=== PATIENT | female | born 1940 | race Caucasian/White ===

== ENCOUNTER → 2016-11-28 | Outpatient (CLI) | payer MEDICARE, BC ==
[~2016-11-28] MED LIST: ATEN50TA41 PO; DICL75TA2 PO; FLUTICASONE PO; LEVO50TA5 PO; MISO200T4 PO; OMNIPAQUE 350 MG/ML, 100ML BOTTLE ONE; OXYC-302 PO; PANT40TA3 PO; TRIA1TAB5 PO; VERA120T5 PO
== END | disposition home or self-care (01) ==
LOC: CFH 12:08
PROVIDERS: ATTEND Colon & Rectal Surgery
DX: Z13.820 Encounter for screening for osteoporosis (principal); Z01.818 Encounter for other preprocedural examination; M85.88 Other specified disorders of bone density and structure, other site; C18.9 Malignant neoplasm of colon, unspecified; R91.1 Solitary pulmonary nodule; J47.9 Bronchiectasis, uncomplicated; J43.8 Other emphysema; M47.896 Other spondylosis, lumbar region; K63.89 Other specified diseases of intestine; N95.8 Other specified menopausal and perimenopausal disorders
CPT/HCPCS: 71260; 74177; 77080; 82565; Q9967

== ENCOUNTER 2017-02-06 14:34 | Inpatient (IN) | payer MEDICARE, BC ==
[~2017-02-06] VITALS: Ht 160 cm; Wt 102.6 kg
[~2017-02-06 14:34] MED LIST changes: -OMNIPAQUE 350 MG/ML, 100ML BOTTLE ONE
[2017-02-06 15:23] LABS: BLOOD UREA NITROGEN 17 mg/dL (7-18)
[2017-02-06] MEDS ORDERED: ONDANSETRON 2MG/ML, 2ML IVPush PRN (16:30)
[2017-02-06] MEDS ORDERED: ACETAMINOPHEN 325 MG TABLET PO PRN (16:30)
[2017-02-06] MEDS ORDERED: TEMAZEPAM 15 MG CAPSULE PO PRN (16:30)
[2017-02-06] MEDS: PANTOPROZOLE 40MG TABLET PO SCH (17:00)
[2017-02-06] MEDS ORDERED: IRON SUCROSE COMPLEX 100MG/5ML IV SCH (19:00)
[2017-02-06] MEDS: GOLYTELY 4,000ML ORAL.SOL PO SCH (20:10)
[2017-02-06] MEDS: ATENOLOL 50 MG TABLET PO SCH (21:43)
[2017-02-06 22:57] VITALS: BP 188/83
[2017-02-07] MEDS ORDERED: POTASSIUM CHLORIDE 20 MEQ in LACTATED RINGERS 1,000 ML IV SCH
[2017-02-07 01:50] VITALS: BP 145/75
[2017-02-07] MEDS: GOLYTELY 4,000ML ORAL.SOL PO SCH (03:34)
[2017-02-07 05:39] LABS: BLOOD UREA NITROGEN 9 mg/dL (7-18)
[2017-02-07 05:42] LABS: ASPARTATE AMINO TRANSFERASE 17 U/L (15-37)
[2017-02-07 07:06] VITALS: BP 178/76
[2017-02-07] MEDS: PANTOPROZOLE 40MG TABLET PO SCH (08:00)
[2017-02-07] MEDS: ATENOLOL 50 MG TABLET PO SCH (08:28)
[2017-02-07] MEDS ORDERED: VERAPAMIL 120MG TABLET PO SCH (09:00)
[2017-02-07] MEDS ORDERED: MISOPROSTOL 200 MCG TABLET PO SCH (09:00)
[2017-02-07] MEDS ORDERED: LEVOTHYROXINE 50 MCG TABLET PO SCH (09:00)
[2017-02-07 10:30] VITALS: BP 104/61
[2017-02-07] MEDS ORDERED: FENTANYL PF 100 MCG/2ML ONE (11:20)
[2017-02-07] MEDS ORDERED: MIDAZOLAM 1 MG/ML, 5ML ONE (11:21)
[2017-02-07 12:38] VITALS: BP 130/74
[2017-02-07] MEDS ORDERED: FERR325T20 PO (13:22)
[2017-02-07] MEDS ORDERED: FERROUS SULFATE 325 MG TABLET PO SCH (17:00)
[2017-02-08] MEDS ORDERED: TRIAMTERENE/HCTZ 75/50MG TABLET PO SCH (09:00)
== END 2017-02-07 15:02 | disposition home or self-care (01) | DRG 394 ==
LOC: OR 15:27 → EDIP 15:28 → OR 15:35 → 4WST 18:31
PROVIDERS: ADMIT Internal Medicine
PROC: 0DJD8ZZ Inspection of Lower Intestinal Tract, Via Natural or Artificial Opening Endoscopic (ICD-10-PCS; principal; 2017-02-07 14:15)
DX: K64.8 Other hemorrhoids (principal); E44.1 Mild protein-calorie malnutrition; D62 Acute posthemorrhagic anemia; Z68.41 Body mass index [BMI] 40.0-44.9, adult; E03.9 Hypothyroidism, unspecified; M81.0 Age-related osteoporosis without current pathological fracture; Z66 Do not resuscitate; D50.9 Iron deficiency anemia, unspecified; I11.9 Hypertensive heart disease without heart failure; E55.9 Vitamin D deficiency, unspecified; M19.90 Unspecified osteoarthritis, unspecified site; E78.5 Hyperlipidemia, unspecified; J44.9 Chronic obstructive pulmonary disease, unspecified; Z87.891 Personal history of nicotine dependence; Z85.048 Personal history of other malignant neoplasm of rectum, rectosigmoid junction, and anus; Z99.81 Dependence on supplemental oxygen; Z90.49 Acquired absence of other specified parts of digestive tract; Z88.5 Allergy status to narcotic agent; Z88.8 Allergy status to other drugs, medicaments and biological substances; Z87.11 Personal history of peptic ulcer disease; M47.816 Spondylosis without myelopathy or radiculopathy, lumbar region; Z86.010 Personal history of colon polyps
CPT/HCPCS: 36415; 80048; 80053; 82040; 82728; 83540; 83550; 85018; 85025; 85610; 85651; 85730; 86850; 86900; 93005; 96374; 99151; J1756; J2250; J2405; J3010; J3480; J7120

== ENCOUNTER → 2018-08-24 | Outpatient (CLI) | payer MEDICARE, BC ==
[~2018-08-24] MED LIST changes: +FERR325T18 PO
[2018-08-24 12:12] LABS: BASOPHILS # (AUTO) 0.05 x10^3/uL (0-0.1); BASOPHILS % (AUTO) 1 % (0-1); EOSINOPHILS # (AUTO) 0.26 x10^3/uL (0-0.4); EOSINOPHILS % (AUTO) 3 % (1-7); LYMPHOCYTES # (AUTO) 1.79 x10^3/uL (1-3.4); LYMPHOCYTES % (AUTO) 19 % (22-44); MD NO; MEAN CORPUSCULAR HEMOGLOBIN 30.7 pg (27.0-34.8); MEAN CORPUSCULAR HGB CONC 32.5 g/dL (32.4-35.8); MEAN CORPUSCULAR VOLUME 94.5 fL (80-100); MEAN PLATELET VOLUME 7.2 fL (7.4-10.4); MONOCYTES # (AUTO) 0.61 x10^3/uL (0.2-0.8); MONOCYTES % (AUTO) 7 % (2-9); NEUTROPHILS # (AUTO) 6.67 x10^3/uL (1.8-6.8); NEUTROPHILS % (AUTO) 71 % (42-75); PLATELET COUNT 282 x10^3/uL (130-400); RED BLOOD COUNT 4.58 x10^6/uL (3.82-5.3)
[2018-08-24 12:24] LABS: CREATININE 1.06 mg/dL (0.55-1.02)
[2018-08-24 12:36] LABS: FREE T4 (FREE THYROXINE) 1.21 ng/dL (0.76-1.46); THYROID STIMULATING HORMONE 3.54 mIU/L (0.358-3.740)
== END | disposition home or self-care (01) ==
LOC: LAB 11:56
PROVIDERS: ATTEND Internal Medicine
DX: D50.9 Iron deficiency anemia, unspecified (principal); E03.8 Other specified hypothyroidism
CPT/HCPCS: 36415; 82565; 82728; 84439; 84443; 85025

== ENCOUNTER → 2018-08-27 | Outpatient (CLI) | payer MEDICARE, BC ==
[~2018-08-27] MED LIST changes: +GADOBUTROL 10 MMOL/10 ML PFS ONE
== END | disposition home or self-care (01) ==
LOC: RAD 07:20
PROVIDERS: ATTEND Internal Medicine
DX: G31.9 Degenerative disease of nervous system, unspecified (principal); G57.33 Lesion of lateral popliteal nerve, bilateral lower limbs; J44.9 Chronic obstructive pulmonary disease, unspecified
CPT/HCPCS: 70553; A9585

== ENCOUNTER 2019-02-18 12:50 | Outpatient (CLI) | payer MEDICARE, BC ==
[~2019-02-18 12:50] MED LIST changes: -DICL75TA2 PO; +DICL75TA3 PO; -GADOBUTROL 10 MMOL/10 ML PFS ONE
== END 2019-02-18 23:59 | disposition home or self-care (01) ==
LOC: CARD 12:50
PROVIDERS: ATTEND Nurse Practitioner
DX: J44.9 Chronic obstructive pulmonary disease, unspecified (principal); I10 Essential (primary) hypertension; E03.9 Hypothyroidism, unspecified; Z88.5 Allergy status to narcotic agent; Z88.8 Allergy status to other drugs, medicaments and biological substances
CPT/HCPCS: 94060; 94618; 94726; 94729

== ENCOUNTER 2019-04-20 11:25 | Outpatient (CLI) | payer MEDICARE, BC | END 2019-04-20 23:59 | disposition home or self-care (01) | LOC: CFH 11:25 | PROVIDERS: ATTEND Internal Medicine Cardiovascular Disease | DX: Z01.810 Encounter for preprocedural cardiovascular examination (principal); I35.8 Other nonrheumatic aortic valve disorders; I10 Essential (primary) hypertension; J43.9 Emphysema, unspecified; Z87.891 Personal history of nicotine dependence | CPT/HCPCS: 78452; 93017; 93306; A9502; J2785 ==

== ENCOUNTER 2019-10-02 20:40 | Inpatient (IN) | payer MEDICARE, BC ==
[~2019-10-02] VITALS: Ht 160 cm; Wt 103.9 kg
[2019-10-02] MEDS ORDERED: SODIUM CHLORIDE FLUSH 10ML SYR IVF ONE (21:00)
--- NOTE | 2019-10-02 21:08 | NUR ---
PT UP TO BSC 1ASSISST. PT TO CT AT THIS TIME
[2019-10-02] MEDS ORDERED: HEPARIN 25,000 UNITS/500ML PMX 500 ML IV PRN ×2 (21:30→21:31)
[2019-10-02] MEDS ORDERED: HEPARIN 5,000 UNITS/ML, 1ML IV PRN ×2 (21:30→21:31)
[2019-10-02] MEDS ORDERED: HEPARIN 5,000 UNITS/ML, 1ML IV ONE (21:30)
[2019-10-02] MEDS ORDERED: HEPARIN 5,000 UNITS/ML, 1ML ONE (21:45)
[2019-10-02] MEDS ORDERED: HEPARIN 25,000 UNITS/500ML PMX 500 ML ONE (21:45)
--- NOTE | 2019-10-02 21:45 | NUR ---
VERIFIED DOSE RATE FOR HEPARIN WITH PHARMACY, PER PHARMACY USE DOSE FOR 71KG-85KG
--- NOTE | 2019-10-02 21:55 | NUR ---
HEPARIN BOLUS AND DRIP STARTED, VERIFIED WITH JEREMIE KATE.
[2019-10-02] MEDS ORDERED: OMNIPAQUE 350 MG/ML, 100ML BOTTLE ONE (22:30)
[2019-10-02] MEDS ORDERED: NITROGLYCERIN 0.4 MG BOTTLE (25 TABS) SL PRN (23:00)
[2019-10-02] MEDS ORDERED: BISACODYL 10 MG SUPP PR PRN (23:00)
[2019-10-02] MEDS ORDERED: ONDANSETRON ODT 4 MG PO PRN (23:00)
[2019-10-02] MEDS ORDERED: POLYETHYLENE GLYCOL 17 GM PACKET PO PRN (23:00)
--- NOTE | 2019-10-02 23:53 | NUR ---
PT UP TO BSC ONE ASSIST PT O2 DESAT TO 78% PT O2 INCREASED TO 8L MASK AND PT UP TO 90% RESTING IN BED
--- NOTE | 2019-10-03 00:37 | NUR ---
REPORT TO FLOOR RN ALL QUESTIONS ADDRESSED PT READY FOR TRANSFER
[2019-10-03] MEDS: SODIUM CHLORIDE FLUSH 10ML SYR IVF SCH ×3 (01:12→20:21)
[2019-10-03 01:13] VITALS: BP 176/92
[2019-10-03] MEDS: HEPARIN GTT MC SCH ×3 (01:30→16:07)
[2019-10-03] MEDS ORDERED: UMEC1DIS INH (01:33)
[2019-10-03] MEDS ORDERED: TRAM50TA2 PO (01:33)
[2019-10-03] MEDS ORDERED: HEPARIN 25,000 UNITS/500ML PMX 500 ML IV PRN (02:00)
[2019-10-03 05:38] LABS: BASOPHILS % (AUTO) 0 % (0-1); EOSINOPHILS % (AUTO) 0 % (1-7); LYMPHOCYTES % (AUTO) 8 % (22-44); MD NO; MEAN CORPUSCULAR HEMOGLOBIN 30.1 pg (27.0-34.8); MEAN CORPUSCULAR HGB CONC 32.2 g/dL (32.4-35.8); MEAN CORPUSCULAR VOLUME 93.5 fL (80-100); MEAN PLATELET VOLUME 7.8 fL (7.4-10.4); MONOCYTES # (AUTO) 0.27 x10^3/uL (0.2-0.8); MONOCYTES % (AUTO) 3 % (2-9); NEUTROPHILS # (AUTO) 7.09 x10^3/uL (1.8-6.8); NEUTROPHILS % (AUTO) 89 % (42-75); PLATELET COUNT 127 x10^3/uL (130-400); RED BLOOD COUNT 4.04 x10^6/uL (3.82-5.3); RED CELL DISTRIBUTION WIDTH 14.3 % (9.6-15.2)
[2019-10-03 07:46] LABS: ALANINE AMINOTRANSFERASE 20 U/L (12-78); ALBUMIN 2.6 g/dL (3.4-5.0); ANION GAP 7 mmol/L (5-15); CHLORIDE 107 mmol/L (98-107); CREATININE 0.73 mg/dL (0.55-1.02)
[2019-10-03 07:50] LABS: ALKALINE PHOSPHATASE 70 U/L (45-117); BILIRUBIN,TOTAL 0.3 mg/dL (0.2-1.0)
[2019-10-03] MEDS: FERROUS SULFATE 325 MG TABLET PO SCH ×2 (08:00→16:07)
[2019-10-03] MEDS: PANTOPROZOLE 40MG TABLET PO SCH ×2 (08:00→16:07)
[2019-10-03] MEDS ORDERED: ATENOLOL 50 MG TABLET PO SCH (09:00)
[2019-10-03] MEDS: LEVOTHYROXINE 50 MCG TABLET PO SCH (09:47)
[2019-10-03] MEDS: SENNA/DOCUSATE TABLET PO SCH (09:47)
[2019-10-03] MEDS: VERAPAMIL ER 240MG TABLET.ER PO SCH (09:47)
[2019-10-03 11:14] VITALS: BP 169/99
[2019-10-03] MEDS: METOPROLOL TARTRATE 50 MG TABLET PO SCH ×2 (11:32→18:10)
[2019-10-03] MEDS: LISINOPRIL 5 MG TABLET PO SCH (11:32)
[2019-10-03] MEDS: MISOPROSTOL 200 MCG TABLET PO SCH (11:32)
[2019-10-03] MEDS: HEPARIN 5,000 UNITS/ML, 1ML IV PRN ×2 (11:46→18:17)
[2019-10-03 16:59] VITALS: BP 153/82
[2019-10-03] MEDS: ACETAMINOPHEN 325 MG TABLET PO PRN (20:29)
[2019-10-04] MEDS: HEPARIN GTT MC SCH (01:30)
[2019-10-04 04:23] VITALS: BP 157/80
[2019-10-04] MEDS ORDERED: HEPARIN 25,000 UNITS/250ML PMX 250 ML IV PRN (04:30)
[2019-10-04] MEDS ORDERED: HEPARIN 5,000 UNITS/ML, 1ML IV PRN (04:30)
[2019-10-04] MEDS ORDERED: DICL-249 PO (06:37)
[2019-10-04] MEDS: PANTOPROZOLE 40MG TABLET PO SCH (08:00)
[2019-10-04] MEDS: FERROUS SULFATE 325 MG TABLET PO SCH (08:00)
[2019-10-04] MEDS: VERAPAMIL ER 240MG TABLET.ER PO SCH (08:45)
[2019-10-04] MEDS: ACETAMINOPHEN 325 MG TABLET PO PRN (08:45)
[2019-10-04] MEDS: LEVOTHYROXINE 50 MCG TABLET PO SCH (08:45)
[2019-10-04] MEDS: LISINOPRIL 5 MG TABLET PO SCH (08:46)
[2019-10-04] MEDS: SENNA/DOCUSATE TABLET PO SCH (08:46)
[2019-10-04] MEDS: SODIUM CHLORIDE FLUSH 10ML SYR IVF SCH (08:47)
[2019-10-04] MEDS: METOPROLOL TARTRATE 50 MG TABLET PO SCH ×2 (08:51→17:50)
[2019-10-04] MEDS ORDERED: TRIAMTERENE/HCTZ 75/50MG TABLET PO SCH (09:00)
[2019-10-04] MEDS: MISOPROSTOL 200 MCG TABLET PO SCH (09:00)
[2019-10-04 10:00] VITALS: BP 126/79
[2019-10-04 13:09] VITALS: BP 119/72
[2019-10-04] MEDS ORDERED: ALBUTEROL/IPRATROPIUM 2.5MG/0.5MG, 3 ML ONE (13:47)
[2019-10-04] MEDS: ALBUTEROL/IPRATROPIUM 2.5MG/0.5MG, 3 ML NPPB SCH ×2 (14:44→21:00)
[2019-10-04 20:31] VITALS: BP 120/72
[2019-10-04] MEDS: APIXABAN 5 MG TABLET PO SCH (20:37)
[2019-10-04] MEDS: BUDESONIDE 0.5 MG/2 ML INHA NPPB SCH (21:00)
[2019-10-05 01:47] VITALS: BP 111/70
[2019-10-05] MEDS: ALBUTEROL/IPRATROPIUM 2.5MG/0.5MG, 3 ML NPPB SCH ×2 (02:43→09:19)
[2019-10-05] MEDS: METOPROLOL TARTRATE 50 MG TABLET PO SCH (05:51)
[2019-10-05] MEDS: ACETAMINOPHEN 325 MG TABLET PO PRN (06:08)
[2019-10-05 06:20] LABS: BASOPHILS # (AUTO) 0.02 x10^3/uL (0-0.1); BASOPHILS % (AUTO) 0 % (0-1); EOSINOPHILS # (AUTO) 0.17 x10^3/uL (0-0.4); EOSINOPHILS % (AUTO) 3 % (1-7); LYMPHOCYTES # (AUTO) 1.17 x10^3/uL (1-3.4); LYMPHOCYTES % (AUTO) 18 % (22-44); MD NO; MEAN CORPUSCULAR HEMOGLOBIN 30.6 pg (27.0-34.8); MEAN CORPUSCULAR HGB CONC 32.6 g/dL (32.4-35.8); MEAN CORPUSCULAR VOLUME 93.7 fL (80-100); MEAN PLATELET VOLUME 7.3 fL (7.4-10.4); MONOCYTES # (AUTO) 0.61 x10^3/uL (0.2-0.8); MONOCYTES % (AUTO) 9 % (2-9); NEUTROPHILS # (AUTO) 4.73 x10^3/uL (1.8-6.8); NEUTROPHILS % (AUTO) 71 % (42-75); PLATELET COUNT 102 x10^3/uL (130-400); RED CELL DISTRIBUTION WIDTH 13.8 % (9.6-15.2)
[2019-10-05 06:32] LABS: ANION GAP 5 mmol/L (5-15); CALCIUM 8.5 mg/dL (8.5-10.1); CHLORIDE 108 mmol/L (98-107); CREATININE 0.66 mg/dL (0.55-1.02)
[2019-10-05 07:04] VITALS: BP 136/81
[2019-10-05] MEDS ORDERED: APIX5TAB PO (07:56)
[2019-10-05] MEDS: APIXABAN 5 MG TABLET PO SCH (08:41)
[2019-10-05] MEDS: LISINOPRIL 5 MG TABLET PO SCH (08:42)
[2019-10-05] MEDS: MISOPROSTOL 200 MCG TABLET PO SCH (08:42)
[2019-10-05] MEDS: LEVOTHYROXINE 50 MCG TABLET PO SCH (08:42)
[2019-10-05] MEDS: VERAPAMIL ER 240MG TABLET.ER PO SCH (08:43)
[2019-10-05] MEDS: SENNA/DOCUSATE TABLET PO SCH (08:44)
[2019-10-05] MEDS ORDERED: DICLOFENAC SODIUM 75 MG TABLET.DR PO SCH (09:00)
[2019-10-05] MEDS: BUDESONIDE 0.5 MG/2 ML INHA NPPB SCH (09:20)
[2019-10-11] MEDS ORDERED: APIXABAN 5 MG TABLET PO SCH (21:00)
== END 2019-10-05 12:57 | disposition home or self-care (01) | DRG 280 ==
LOC: ED 21:57 → EDIP 22:43 → 5SO 10-03 01:01 → DCLOUNGE 10-05 12:46
PROVIDERS: ADMIT Family Medicine; ATTEND Internal Medicine
DX: I21.4 Non-ST elevation (NSTEMI) myocardial infarction (principal); I26.99 Other pulmonary embolism without acute cor pulmonale; J96.21 Acute and chronic respiratory failure with hypoxia; Z68.41 Body mass index [BMI] 40.0-44.9, adult; J44.1 Chronic obstructive pulmonary disease with (acute) exacerbation; J98.11 Atelectasis; I27.81 Cor pulmonale (chronic); E66.01 Morbid (severe) obesity due to excess calories; Z96.651 Presence of right artificial knee joint; D69.6 Thrombocytopenia, unspecified; E03.9 Hypothyroidism, unspecified; E78.5 Hyperlipidemia, unspecified; I10 Essential (primary) hypertension; Z82.5 Family history of asthma and other chronic lower respiratory diseases; Z85.038 Personal history of other malignant neoplasm of large intestine; Z87.891 Personal history of nicotine dependence; Z99.81 Dependence on supplemental oxygen; Z90.49 Acquired absence of other specified parts of digestive tract; Z80.3 Family history of malignant neoplasm of breast; Z88.5 Allergy status to narcotic agent; Z88.8 Allergy status to other drugs, medicaments and biological substances; Z79.01 Long term (current) use of anticoagulants
CPT/HCPCS: 36415; 71275; 80048; 80053; 83735; 83880; 84100; 84484; 85025; 85520; 86140; 93005; 93306; 94640; 96365; G0378; J1644; J7620; J7626; Q9967

== ENCOUNTER → 2020-02-18 | Outpatient (CLI) | payer MEDICARE, BC ==
[~2020-02-18] MED LIST changes: +APIX5TAB PO; +DICL-249 PO; +TRAM50TA2 PO; +UMEC1DIS INH; +VERA120T13 PO; -VERA120T5 PO
== END | disposition home or self-care (01) ==
LOC: CVU 14:27
PROVIDERS: ATTEND Internal Medicine Cardiovascular Disease
DX: I08.0 Rheumatic disorders of both mitral and aortic valves (principal); I26.99 Other pulmonary embolism without acute cor pulmonale; I10 Essential (primary) hypertension; Z85.038 Personal history of other malignant neoplasm of large intestine; Z87.891 Personal history of nicotine dependence
CPT/HCPCS: 93306

== ENCOUNTER → 2020-02-18 | Outpatient (CLI) | payer MEDICARE, BC ==
[~2020-02-18] MED LIST changes: +OMNIPAQUE 350 MG/ML, 100ML BOTTLE ONE
== END | disposition home or self-care (01) ==
LOC: CFH 13:17
PROVIDERS: ATTEND Nurse Practitioner
DX: I26.09 Other pulmonary embolism with acute cor pulmonale (principal)
CPT/HCPCS: 71275; Q9967